=== PATIENT | female | born 1960 | race Caucasian/White ===

== ENCOUNTER → 2020-07-09 12:28 | Outpatient (CLI) | payer OTHER, SELFPAY ==
--- NOTE | ~2020-07-09 | MM_ITS ---
EXAMINATION: MM screening diamond BI w cat HISTORY: Screening mammogram TECHNIQUE: Craniocaudal and mediolateral oblique 3-D tomosynthesis images were obtained and synthetic 2-D images were generated. CAD analysis was submitted and interpreted. COMPARISON: 05/23/2019, 06/15/2018, 06/22/2017 bilateral digital screening mammogram examinations BREAST PARENCHYMAL COMPOSITION: There are scattered areas of fibroglandular density. FINDINGS: There is no evidence of suspicious mass, calcification, or architectural distortion to sugg est malignancy in either breast. There has been no suspicious interval change. IMPRESSION: 1. No mammographic evidence of malignancy. 2. Recommend routine screening mammography in one year. BI-RADS Category 1: Negative Reviewed, dictated and finalized at location B. 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
== END ==
PROVIDERS: PCP Family Medicine; Visit Provider Family Medicine
DX: Z12.31 Encounter for screening mammogram for malignant neoplasm of breast (principal)
CPT/HCPCS: 77063; 77067

== ENCOUNTER → 2020-07-10 15:44 | Outpatient (CLI) | payer OTHER, SELFPAY ==
--- NOTE | ~2020-07-10 | XR_ITS ---
EXAMINATION: XR knee RT min 4V DATE: 07/10/2020 16:08 INDICATION: Right knee pain. TECHNIQUE: 4 views of right knee were obtained. COMPARISON: None. FINDINGS: Bone alignment is normal. No fracture. There is mild tricompartmental osteoarthritis. There is a small knee joint effusion. IMPRESSION: 1. Mild right knee osteoarthritis. 2. Small right knee joint effusion. Reviewed, dictated and finalized at location A. SPRING FORMER
== END ==
PROVIDERS: Visit Provider Physician Assistant
DX: M17.11 Unilateral primary osteoarthritis, right knee (principal); M25.461 Effusion, right knee
CPT/HCPCS: 73564

== ENCOUNTER 2020-09-05 15:48 | Outpatient (CLI) | payer OTHER, SELFPAY | END 2020-09-05 15:49 | disposition home or self-care (01) | LOC: ANHCOVIDVC 15:48 | PROVIDERS: PCP Family Medicine | DX: Z23 Encounter for immunization (principal) | CPT/HCPCS: 0001A; 91300 ==

== ENCOUNTER 2020-09-26 15:42 | Outpatient (CLI) | payer OTHER, SELFPAY | END 2020-09-26 15:43 | disposition home or self-care (01) | LOC: ANHCOVIDVC 15:42 | PROVIDERS: PCP Family Medicine | DX: Z23 Encounter for immunization (principal) | CPT/HCPCS: 0002A; 91300 ==

== ENCOUNTER → 2020-10-19 02:49 | Outpatient (CLI) | payer OTHER, SELFPAY ==
[2020-10-19 19:43] LABS: SARS-CoV-2 RNA PCR Negative
== END ==
PROVIDERS: PCP Family Medicine; Visit Provider Internal Medicine Gastroenterology
DX: Z01.812 Encounter for preprocedural laboratory examination (principal); Z20.822 Contact with and (suspected) exposure to COVID-19
CPT/HCPCS: C9803; U0003; U0005

== ENCOUNTER 2020-10-22 00:49 | Day surgery (SDC) | payer OTHER, SELFPAY ==
[2020-10-14 16:22] VITALS: BMI 21.3
[2020-10-22 06:53] VITALS: BP 130/82; PULSE 71; RESP 16; TEMP 36.6; O2SAT 100; BMI 21.1
[2020-10-22] MEDS: LACTATED RINGERS 1,000 ML 150 ML IV CONT (07:02)
--- NOTE | 2020-10-22 07:12 | PM.HPGS ---
History of Present Illness History of Present Illness Consent: Risks, benefits, and alternatives have been discussed and questions answered. Patient agrees to proceed with procedure. Chief complaint: hx of colon polyps Narrative: Patria Clayton is a 59 year old female here for colon cancer screening. She had a polyp removed about 5 years ago and her father had colon cancer Review of Systems Review of Systems: All systems reviewed & are unremarkable except as noted in HPI and below PMFSH Past Medical History Medical History (Updated 10/22/20 @ 07:13 by Panda Romero MD) Rotator cuff injury Surgical History Surgical History H/O colonoscopy Family History Family History Father Family history of coronary artery disease Carcinoma of colon Grandparent Family history of cardiovascular disease Other Hypertension Social History Social History Smoking packs per day: 1 Smoking cigarettes per day: 20.0 Years smoked: 10 Smoking pack-years: 10.00 Smoking status: Former smoker Tobacco type: cigarettes Alcohol intake: current Alcohol use details: rarely Living arrangements: with family Gender identity (if verbalized by the patient): Female Spiritual care concerns: No Meds Home Medications and Allergies Home Medications Medication Instructions Recorded Confirmed Type cholecalciferol (vitamin D3) 25 mcg PO DAILY 10/14/20 10/22/20 History hydroxyzine HCl 2.5 mg PO DAILY PRN 10/14/20 10/22/20 History krill oil 500 mg PO DAILY 10/14/20 10/22/20 History multivit with min-folic acid 1 tablet PO DAILY 10/14/20 10/22/20 History [Women's Multivitamin Gummies] Allergies Allergy/AdvReac Type Severity Reaction Status Date / Time No Known Allergies Allergy Verified 10/22/20 06:52 Vital Signs Vital Signs - 24 hr 10/22/20 06:53 Temperature 36.6 C Pulse Rate 71 Respiratory Rate 16 Blood Pressure 130/82 Pulse Oximetry 100 Exam Resp: Auscultation: clear to auscultation bilaterally Cardio: Rate: regular rate Rhythm: regular rhythm GI: GI Palp: Yes Soft to palpation and No Tenderness to palpation present (GI) Assessment and Plan Assessment and plan (1) Colon cancer screening: Code(s): Z12.11 - Encounter for screening for malignant neoplasm of colon Status: Acute Assessment and Plan: Colonoscopy with possible biopsy or polypectomy or cautery or injection of substances.
--- NOTE | 2020-10-22 07:34 | WPDANESEPPF ---
Anes - Initial Pre Proc Eval Procedure: Operation Date: 10/22/20 08:00 Proposed Procedures p Screening Colonoscopy - Panda Romero MD Date/Time: 10/22/20 07:34 Surgeon: Panda Romero MD Pre Op Diagnosis: hx of colon polyps Patient Data Age: 59 Gender: F Height: 5 ft 6 in Weight: 59.4 kg Last Vital Signs Temp 98 F 10/22/20 06:53 Pulse 71 10/22/20 06:53 Resp 16 10/22/20 06:53 BP 130/82 10/22/20 06:53 Pulse Ox 100 10/22/20 06:53 Allergies Allergy/AdvReac Type Severity Reaction Status Date / Time No Known Allergies Allergy Verified 10/22/20 06:52 Home Medications Medication Instructions Recorded Confirmed Type cholecalciferol (vitamin D3) 25 mcg PO DAILY 10/14/20 10/22/20 History hydroxyzine HCl 2.5 mg PO DAILY PRN 10/14/20 10/22/20 History krill oil 500 mg PO DAILY 10/14/20 10/22/20 History multivit with min-folic acid 1 tablet PO DAILY 10/14/20 10/22/20 History [Women's Multivitamin Gummies] Patient hx anesthesia problems: none Family hx anesthesia problems: none PMFSH Past Medical History Medical History (Updated 10/22/20 @ 07:32 by Brenden Miles MD) Anxiety Rotator cuff injury Surgical History Surgical History H/O colonoscopy Family History Family History Father Family history of coronary artery disease Carcinoma of colon Grandparent Family history of cardiovascular disease Other Hypertension Social History Social History Smoking packs per day: 1 Smoking cigarettes per day: 20.0 Years smoked: 10 Smoking pack-years: 10.00 Smoking status: Former smoker Tobacco type: cigarettes Alcohol intake: current Alcohol use details: rarely Living arrangements: with family Gender identity (if verbalized by the patient): Female Spiritual care concerns: No Anes - Eval Final PreProcedure Day of Procedure 10/22/20 07:34 Patient weight: normal Heart: regular rate and rhythm Lungs: clear to auscultation Airway: Mallampati scale class II Neurological: alert and oriented Last oral intake: >/= 8 hours ASA classification: II Emergent: no Anesthetic plan: proceed Anesthesia type and monitoring: general GIVS and standard monitoring Informed Consent: The patient's anesthetic plan and its attendant risks and benefits were discussed with the patient/family/POA. Questions were solicited and answers provided to the satisfaction of the patient/family/POA.
[2020-10-22 08:29] VITALS: BP 86/56; PULSE 58; RESP 14; O2SAT 100
[2020-10-22 08:39] VITALS: BP 95/63; PULSE 62; RESP 13; O2SAT 100
[2020-10-22 08:49] VITALS: BP 116/85; PULSE 62; RESP 24; O2SAT 100
== END 2020-10-22 08:56 | disposition home or self-care (01) ==
PROVIDERS: PCP Family Medicine; Visit Provider Internal Medicine Gastroenterology
PROC: 0DJD8ZZ Inspection of Lower Intestinal Tract, Via Natural or Artificial Opening Endoscopic (ICD-10-PCS; CPT 45378; principal; 2020-10-22 08:00)
DX: Z12.11 Encounter for screening for malignant neoplasm of colon (principal); Z80.0 Family history of malignant neoplasm of digestive organs; Z87.891 Personal history of nicotine dependence
CPT/HCPCS: 45378; C9803; J2704; J7120; U0003; U0005

== ENCOUNTER 2020-11-30 08:23 | Emergency (ER) | payer OTHER, SELFPAY ==
--- NOTE | ~2020-11-30 | CT_ITS ---
EXAMINATION: CT brain wo con DATE: 11/30/2020 09:39 INDICATION: Numbness and tingling of the arm. TECHNIQUE: Computed tomography (CT) of the head was performed without intravenous contrast. The mA wa s adjusted according to patient size. Iterative reconstruction technique was employed. The dose-lengt h product was 529.67 mGy-cm. COMPARISON: None FINDINGS: There is no intracranial hemorrhage, acute infarction, or abnormal intracranial mass lesion . The ventricles are normal in size. The orbits are normal. There are changes of left-sided craniotom y. 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 There is a trace left mastoid effusion. IMPRESSION: 1. Normal brain. Reviewed, dictated and finalized at location A. IMPRESSION: 1. Normal brain.
--- NOTE | ~2020-11-30 | XR_ITS ---
EXAMINATION: XR chest 1V portable DATE: 11/30/2020 09:27 INDICATION: Left arm tingling. TECHNIQUE: A single frontal view of the chest was obtained. COMPARISON: Chest 2 views 02/29/2012 FINDINGS: The chest demonstrates clear lungs without pneumonia, pleural effusion, or pneumothorax. Th e heart size is normal. IMPRESSION: 1. No acute cardiopulmonary disease. Reviewed, dictated and finalized at location A.
[2020-11-30 08:35] VITALS: BP 154/96; PULSE 76; RESP 20; TEMP 36.8; O2SAT 100
--- NOTE | 2020-11-30 08:40 | ECG_ITS ---
Measurements Intervals Lorenzo Rate: 68 P: 80 WY: 158 QRS: 76 QRSD: 103 T: 68 QT: 370 QTc: 394 Interpretive Statements SINUS RHYTHM FUSION COMPLEX DELAYED PRECORDIAL R/S TRANSITION BASELINE ARTIFACT- AVF, V4-V6 BORDERLINE ECG Electronically Signed On 11-30-2020 14:59:50 CDT by Sawyer Mccarty D.O.
[2020-11-30 08:54] LABS: Basophils Absolute Auto 0.1 K/mm3 (0.0-0.1); Basophils Percent Auto 0.7 % (0.2-1.2); Eosinophils Absolute Auto 0.3 K/mm3 (0-0.3); Eosinophils Percent Auto 3.9 % (0-4.4); Hematocrit 41.3 % (37.0-47.0); Immature Granulocyte Absolute 0.01 K/mm3 (0.00-0.031); Immature Granulocyte Percent A 0.1 % (0-0.5); Lymphocytes Absolute Auto 1.16 K/mm3 (0.9-3.2); Lymphocytes Percent Auto 16.6 % (18.3-44.2); Mean Corpuscular HGB Conc 33.9 g/dl (32-36); Mean Corpuscular Hemoglobin 30.8 pg (26-34); Mean Platelet Volume 10.9 fl (7.4-10.4); Monocytes Absolute Auto 0.6 K/mm3 (0.1-0.6); Monocytes Percent Auto 7.9 % (2.6-8.5); Neutrophils Absolute Auto 4.9 K/mm3 (1.3-6.7); Neutrophils Percent Auto 70.8 % (45.5-73.1); Platelet Count Result 241 k/mm3 (150-375); Red Blood Count 4.54 M/mm3 (4.2-5.4); Red Cell Distribution Width 12.2 % (11.5-14.5)
[2020-11-30 08:54] LABS: Glucose Point of Care 110 mg/dl (65-105)
[2020-11-30 09:03] LABS: Alanine Aminotransferase 25 U/L (4-35); Albumin Level 4.7 g/dL (3.5-5.1); Alkaline Phosphatase 67 U/L (38-126); Anion Gap 9 mmol/L (8-16); Aspartate Amino Transferase 38 U/L (14-36); Bilirubin,Total 0.5 mg/dL (0.2-1.3); Blood Urea Nitrogen 16 mg/dL (7-17); Calcium 9.9 mg/dL (8.4-10.2); Carbon Dioxide 30 mmol/L (22-30); Chloride 98 mmol/L (98-107); Estimated Glomerular Filt Rate > 60; Glucose 104 mg/dL (65-105); Potassium 4.2 mmol/L (3.4-5.0); Sodium 137 mmol/L (137-145)
[2020-11-30 09:20] VITALS: BP 141/95; PULSE 65; RESP 20; O2SAT 99
[2020-11-30 09:21] LABS: INR 0.9; Prothrombin Time 12.5 Seconds (11.1-14.7)
[2020-11-30 09:23] LABS: Partial Thromboplastin Time 27.5 SECONDS (22.3-36.8)
[2020-11-30 09:27] LABS: Alveolar/Arterial O2 Gradient 13.6 mmHg; Base Excess ABG 2.2 mEq/l (+/-2.0); Carboxyhemoglobin 0.3 % THb (0-2.0); Fractional Inspired Oxygen 21 %; HCO3 ABG 25.6 mEq/l (22.0-26.0); Methemoglobin ABG 0.3 %THb (0-1.5); Oxygen Content ABG 18.5 %vol (16.0-22.0); Oxygen Saturation ABG 97.6 % (95.0-100.0); Oxyhemoglobin 96.3 % THb (90.0-100.0); PCO2 ABG 35.9 mmHg (35.0-45.0); PO2 ABG 93.1 mmHg (80.0-100.0); PO2 FiO2 Ratio Arterial Blood 4.43 %; Reduced Hemoglobin 3.1 %THb (0-5.0); Total Hemoglobin 13.6 g/dL (12.0-18.0); pH ABG 7.471 (7.350-7.450)
[2020-11-30 09:29] LABS: Device ROOM AIR; Modified Allen's Test Pass; Site Drawn LEFT RADIAL
[2020-11-30 10:04] VITALS: BP 123/84; PULSE 71; RESP 20; O2SAT 99
--- NOTE | 2020-11-30 10:34 | ED.GENADULT ---
HPI - General Adult General Chief complaint: Neuro Symptoms/Deficit Stated complaint: Right arm numbness, weakness Time Seen by Provider: 11/30/20 10:19 Source: patient and family Mode of arrival: ambulatory Limitations: no limitations History of Present Illness HPI narrative: Patient presents for evaluation of numbness in the upper extremities. She indicates she was driving to work at 0650 this morning when she experienced numbness in the right index finger. She then developed similar symptoms throughout the right hand which migrated up the right upper extremity. When she arrived at work and sustained symptoms on the left side. No history of similar symptoms. She denies any problems with speech, swallowing, motor function. She did not experience any chest pain or shortness of breath. She contacted EMS who evaluated her. She had a twelve-lead, and serum glucose which was normal. Her daughter brought her here for further evaluation. At the present time she does not have any symptoms whatsoever. She denies any underlying medical problems. She does not smoke. She reports intermittent increase in stress but does not feel increasingly stressed or anxious at this time. Related Data Home Medications Medication Instructions Recorded Confirmed Women's Multivitamin Gummies 1 tablet PO DAILY 10/14/20 11/30/20 Allergies Allergy/AdvReac Type Severity Reaction Status Date / Time No Known Allergies Allergy Verified 11/30/20 09:07 Review of Systems Review of Systems: Narrative: CONSTITUTIONAL: Denies fever, chills, or sweats. EYES: Denies visual changes, redness, or discharge. ENT: Denies rhinorrhea, congestion, sore throat, or otalgia. CARDIOVASCULAR: Denies chest pain, palpitations, or edema. RESPIRATORY: Denies cough or dyspnea. GASTROINTESTINAL: Denies abdominal pain, nausea, vomiting, or diarrhea. GENITOURINARY: Denies dysuria or hematuria. SKIN: Denies rash or itching. MUSCULOSKELETAL: Denies back pain, joint pain, or myalgia. NEUROLOGIC: Reports numbness in bilateral upper extremities earlier, now resolved. Denies headache, dizziness, or weakness. PSYCHIATRIC: Denies anxiety or depression. [facility] Past Medical History Medical History Anxiety Rotator cuff injury Surgical History Surgical History H/O colonoscopy Family History Family History Father Family history of coronary artery disease Carcinoma of colon Grandparent Family history of cardiovascular disease Other Hypertension Social History Social History Smoking packs per day: 1 Smoking cigarettes per day: 20.0 Years smoked: 10 Smoking pack-years: 10.00 Smoking status: Former smoker Tobacco type: cigarettes Alcohol intake: current Gender identity (if verbalized by the patient): Female Spiritual care concerns: No Exam Narrative: Exam Narrative: GENERAL: Well-appearing, well-nourished, and in no acute distress. HEAD: Normocephalic, atraumatic. EYES: PERRLA and EOMI. ENT: Nares clear, no rhinorrhea or epistaxis. Mucous membranes moist. Oropharynx without tonsillar hypertrophy exudate or other lesions. Bilateral TMs pearly shen nonbulging NECK: Supple. No adenopathy or masses. No carotid bruits or JVD CHEST: Clear to auscultation. No respiratory distress. No wheezes rales or rhonchi HEART: Regular rate and rhythm. No murmur heard. Normal peripheral pulses. ABDOMEN: Soft, nontender, nondistended, normal active bowel sounds. EXTREMITIES: Normal range of motion. No edema. SKIN: Warm, dry, no rash. NEURO: No focal deficits. Alert and oriented x3. NIH score is 0 PSYCH: Normal mood and affect. Course Course Emergency Course: This is a 60-year-old female who presented with numbness in the righ
[2020-11-30 10:55] VITALS: BP 129/87; PULSE 70; RESP 20; O2SAT 100
[2020-11-30 11:16] LABS: Troponin I < 0.012 ng/mL (0.000-0.034)
[2020-11-30 11:33] VITALS: BP 114/89; PULSE 67; RESP 20; O2SAT 100
[2020-11-30 11:49] VITALS: BP 114/87; PULSE 67; RESP 20; O2SAT 100
== END 2020-11-30 11:51 | disposition home or self-care (01) ==
PROVIDERS: Emergency Medicine; Emergency Provider Nurse Practitioner; PCP Family Medicine
DX: R20.2 Paresthesia of skin (principal); Z87.891 Personal history of nicotine dependence; R94.31 Abnormal electrocardiogram [ECG] [EKG]
CPT/HCPCS: 36415; 36600; 70450; 71045; 80053; 82375; 82805; 82948; 83050; 84484; 85025; 85610; 85730; 93005; 99284

== ENCOUNTER → 2021-08-21 12:47 | Outpatient (CLI) | payer OTHER, SELFPAY ==
--- NOTE | ~2021-08-21 | MM_ITS ---
EXAMINATION: MM screening diamond BI w cat HISTORY: Screening TECHNIQUE: Craniocaudal and mediolateral oblique 3-D tomosynthesis images were obtained and synthetic 2-D images were generated. CAD analysis was submitted and interpreted. COMPARISON: Comparison to multiple prior studies sequentially, with oldest reviewed study dated 12/2015. BREAST PARENCHYMAL COMPOSITION: The breasts are heterogeneously dense, which may obscure small masses . FINDINGS: There is no evidence of suspicious mass, calcification, or architectural distortion to sugg est malignancy in either breast. There has been no suspicious interval change. IMPRESSION: 1. No mammographic evidence of malignancy. 2. Recommend routine screening mammography in one year. BI-RADS Category 1: Negative Reviewed, dictated and finalized at location A. 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
== END ==
PROVIDERS: PCP Family Medicine; Visit Provider Family Medicine
DX: Z12.31 Encounter for screening mammogram for malignant neoplasm of breast (principal)
CPT/HCPCS: 77063; 77067

== ENCOUNTER → 2022-05-12 13:51 | Outpatient (CLI) | payer OTHER, SELFPAY ==
--- NOTE | ~2022-05-12 | DEXA_ITS ---
Bone Density Report Name: ARMANDO CASTILLO Age: 61 Sex: Female Ethnicity: White Date of : 1960 Indication: osteopenia; height loss; asthma or emphysema;postmenopausal Referring Provider: Raine Argueta Study: Bone densitometry was performed. Exam Date: May 12, 2022 Accession number: [id number] Bone Density: Region BMD T-score Z-score Classification AP Spine (L1, L2, L3) 0.911 -1.0 0.6 Normal Femoral Neck (Left) 0.616 -2.1 -0.7 Osteopenia Total Hip (Left) 0.778 -1.3 -0.3 Osteopenia Femoral Neck (Right) 0.623 -2.0 -0.6 Osteopenia Total Hip (Right) 0.719 -1.8 -0.7 Osteopenia Total Hip Mean 0.749 -1.6 -0.5 Osteopenia World Health Organization criteria for BMD impression classify patients as: Normal (T-score at or above -1.0), Osteopenia (T-score between -1.0 and -2.5), or Osteoporosis (T-score at or below -2.5). 10-year Fracture Risk(1): Major Osteoporotic Fracture 9.6% Hip Fracture 1.4% Reported Risk Factors: [place] (), Neck BMD=0.623, BMI=22.0 (1) FRAX(R) Version 3.08. Fracture probability calculated for an untreated patient. Fracture probability may be lower if the patient has received treatment. Previous Exams: Region Exam Age BMD T-score BMD Change BMD Change Date g/cm2 vs Baseline vs Previous AP Spine(L1, L2, L3) 05/12/2022 61 0.911 -1.0 -0.121 -0.028* 06/06/2015 54 0.939 -0.7 -0.093 -0.031* 10/07/2012 51 0.970 -0.4 -0.063 -0.063 12/14/2003 43 1.032 0.1 Total Hip(Left) 05/12/2022 61 0.778 -1.3 -0.201 -0.041* 06/06/2015 54 0.818 -1.0 -0.161 -0.027 10/07/2012 51 0.845 -0.8 -0.134 -0.134 12/14/2003 43 0.979 0.3 Total Hip(Right) 05/12/2022 61 0.719 -1.8 -0.194 -0.044* 06/06/2015 54 0.764 -1.5 -0.150 -0.051* 10/07/2012 51 0.815 -1.0 -0.098 -0.098 12/14/2003 43 0.913 -0.2 *Denotes significance at 95% confidence level, LSC for AP Spine = 0.022 g/cm2, LSC for Total Hip = 0.027 g/cm2 Clinical Information Provided by Patient: Has used the following medications: Vitamin D, Calcium, MTV Has the following medical conditions: Asthma or Emphysema Patient maximum height was 67 Menopause Age: 52 No regular weight bearing exercise Drinks caffeinated beverages Onset of menses at age 15.5 Number of children 2 Impres
== END ==
PROVIDERS: PCP Family Medicine; Visit Provider Family Medicine
DX: Z78.0 Asymptomatic menopausal state (principal); M85.852 Other specified disorders of bone density and structure, left thigh; M85.851 Other specified disorders of bone density and structure, right thigh
CPT/HCPCS: 77080

== ENCOUNTER → 2022-09-22 12:44 | Outpatient (CLI) | payer OTHER, SELFPAY ==
--- NOTE | ~2022-09-22 | MM_ITS ---
EXAMINATION: MM screening diamond BI w cat HISTORY: Screening TECHNIQUE: Craniocaudal and mediolateral oblique 3-D tomosynthesis images were obtained and synthetic 2-D images were generated. CAD analysis was submitted and interpreted. COMPARISON: Comparison to multiple prior studies sequentially, with oldest reviewed study dated 12/2015. BREAST PARENCHYMAL COMPOSITION: The breasts are heterogeneously dense, which may obscure small masses FINDINGS: The left breast is stable without evidence for malignancy. There is a focal hyperdense asym metry in the upper outer quadrant of the right breast posteriorly. IMPRESSION: 1. Focal right breast asymmetry, upper outer quadrant. 2. Additional mammographic views and possible breast ultrasound are recommended. BI-RADS Category 0: Incomplete: Needs additional imaging evaluation. Reviewed, dictated and finalized at location A. IMPRESSION: 1. Focal right breast asymmetry, upper outer quadrant. 2. Additional mammographic views and possible breast ultrasound are recommended . BI-RADS Category 0: Incomplete: Needs additional imaging evaluation.
== END ==
PROVIDERS: PCP Family Medicine; Visit Provider Family Medicine
DX: Z12.31 Encounter for screening mammogram for malignant neoplasm of breast (principal); R92.8 Other abnormal and inconclusive findings on diagnostic imaging of breast
CPT/HCPCS: 77063; 77067

== ENCOUNTER → 2022-09-24 07:26 | Outpatient (CLI) | payer OTHER, SELFPAY ==
--- NOTE | ~2022-09-24 | MMUS_ITS ---
EXAMINATION: MM diagnostic diamond RT w cat, US breast RT limited HISTORY: Follow-up right breast mass TECHNIQUE: Additional 3-D tomosynthesis images of the right breast were performed and synthetic 2-D i mages were generated. CAD analysis was submitted and interpreted. High resolution Limited right breas t ultrasound was performed. COMPARISON: Comparison to multiple prior studies sequentially, with oldest reviewed study dated 03/2017. BREAST PARENCHYMAL COMPOSITION: The breasts are heterogeneously dense, which may obscure small masses . FINDINGS: MAMMOGRAPHIC FINDINGS: There is a subtle asymmetry in the outer aspect of the right breast, best seen on spot CC view. This is not well-visualized on MLO or mediolateral views. ULTRASOUND: Limited right breast ultrasound: At 10-11:00, 5.5 cm from the nipple there is a hypoechoic heterogene ous appearing 5 mm mass with posterior attenuation and marginal vascularity IMPRESSION: 1. 5 mm right breast mass at 10-11 o'clock, 5.5 cm from the nipple. 2. Ultrasound-guided right breast biopsy recommended. BI-RADS category 4, suspicious findings. Reviewed, dictated and finalized at location A. IMPRESSION: 1. 5 mm right breast mass at 10-11 o'clock, 5.5 cm from the nipple. 2. Ultrasound-guided right breast biopsy recommended. BI-RADS category 4, suspicious findings.
== END ==
PROVIDERS: PCP Family Medicine; Visit Provider Family Medicine
DX: R92.8 Other abnormal and inconclusive findings on diagnostic imaging of breast (principal)
CPT/HCPCS: 76642; 77061; 77065; G0279

== ENCOUNTER 2022-10-06 08:55 | Outpatient (CLI) | payer OTHER, SELFPAY ==
--- NOTE | ~2022-10-06 | MMUS_ITS ---
EXAMINATION: US GUIDED NEEDLE BIOPSY DATE: 10/06/2022 10:39 CDT INDICATION: 5 mm sonographic right breast mass at T10-11 o'clock 5.5 cm from nipple TECHNIQUE AND FINDINGS: The risks and potential benefits of the procedure were discussed with the patient, and written inform ed consent was obtained. Timeout procedure was performed. After sterile preparation of the right karla st, 1% lidocaine was utilized for local anesthesia. A 14G spring-loaded biopsy gun needle was advanced to the edge of the region of interest from a media l approach utilizing sonographic guidance. A total of three tissue core samples were obtained throug h the lesion. An Inrad tissue marker clip was then placed at the biopsy site. Hemostasis was achieve d. A sterile bandage was applied. The patient tolerated procedure well. There was some bleeding at the biopsy site noted sonographicall y, with approximately 1.9 cm hematoma noted on the postbiopsy mammogram.. The patient was given verb al instructions prior to departing from the department. A two view mammogram was performed to documen t tissue marker clip placement. The tissue samples were submitted to surgical pathology for histologi c analysis. IMPRESSION: 1. Successful ultrasound guided biopsy of right 10-11:00 breast mass with biopsy marker placement. P lease refer to pathology report for histologic analysis. Reviewed, dictated and finalized at Location A. Reviewed, dictated and finalized at location A. IMPRESSION: 1. Successful ultrasound guided biopsy of right 10-11:00 breast mass with biop sy marker placement. Please refer to pathology report for histologic analysis.
== END 2022-10-06 08:56 | disposition home or self-care (01) ==
PROVIDERS: PCP Family Medicine; Visit Provider Family Medicine
DX: N63.10 Unspecified lump in the right breast, unspecified quadrant (principal); C50.911 Malignant neoplasm of unspecified site of right female breast
CPT/HCPCS: 19083; 88305; 88342; A4648

== ENCOUNTER 2024-01-19 02:00 | Day surgery (SDC) | payer OTHER, SELFPAY ==
[2024-01-05 08:26] VITALS: BMI 21.6
[2024-01-19 08:19] VITALS: BP 142/86; PULSE 73; RESP 18; TEMP 36.9; O2SAT 100
[2024-01-19] MEDS: LACTATED RINGERS 1,000 ML 150 ML IV CONT (08:27)
--- NOTE | 2024-01-19 08:50 | PM.HPGS ---
History of Present Illness History of Present Illness Consent: Risks, benefits, and alternatives have been discussed and questions answered. Patient agrees to proceed with procedure. Chief complaint: Poor prep Narrative: Patria Clayton is a 63 year old female with colon polyp, last colonoscopy 2020 with poor prep, also family h/o CRC Review of Systems Review of Systems: All systems reviewed & are unremarkable except as noted in HPI and below PMFSH Past Medical History Medical History (Updated 01/19/24 @ 08:51 by Kadeem Corado MD) Anxiety Breast mass Colon polyp Rotator cuff injury Surgical History Surgical History H/O colonoscopy Family History Family History Father Family history of coronary artery disease Carcinoma of colon Grandparent Family history of cardiovascular disease Other Hypertension Social History Social History Smoking packs per day: 1 Smoking cigarettes per day: 20.0 Years smoked: 10 Smoking pack-years: 10.00 Smoking status: Former smoker Tobacco type: cigarettes Alcohol intake: current Drinks per week: 3 Alcohol use details: rarely Lack of Transportation: No Lack of Food: Never True Current Housing: I Have Housing Concerned About Future Housing: No Difficulty Paying Gas/Electric Bills: No Difficulty Paying for Meds: No Currently Unemployed: No Living arrangements: with family Gender identity (if verbalized by the patient): Female Spiritual care concerns: No Meds Home Medications and Allergies Home Medications Medication Instructions Recorded Confirmed Type multivitamin with minerals-folic 1 tablet PO DAILY 10/14/20 01/05/24 History acid 200 mcg chewable tablet (Women's Multivitamin Gummies) krill oil 500 mg capsule 500 mg PO DAILY 05/22/21 01/05/24 History calcium carbonate 600 mg PO DAILY #90 tabs 05/14/22 01/05/24 Rx cholecalciferol (vitamin D3) 50 50 mcg PO DAILY #90 tabs 05/14/22 01/05/24 Rx mcg (2,000 unit) tablet tamoxifen 20 mg tablet 20 mg PO DAILY 05/11/23 01/05/24 History fluticasone propionate 50 1 spray intranasal BID PRN 11/09/23 01/05/24 History mcg/actuation nasal Allergic Symptoms spray,suspension (Flonase Allergy Relief) olopatadine 0.6 % nasal spray 2 spray intranasal BID PRN Allergy 11/09/23 01/05/24 History Symptoms pravastatin 10 mg tablet 10 mg PO QHS #90 tabs 11/09/23 01/05/24 Rx sertraline 25 mg tablet 25 mg PO DAILY #90 tabs 11/15/23 01/05/24 Rx Allergies Allergy/AdvReac Type Severity Reaction Status Date / Time No Known Allergies Allergy Verified 01/19/24 08:17 Vital Signs Vital Signs - 24 hr 01/19/24 08:19 Temperature 98.4 F Pulse Rate 73 Respiratory Rate 18 Blood Pressure 142/86 H Pulse Oximetry 100 Oxygen Delivery Room Air Exam Const: General: comfortable and no acute distress HENMT: Face/Nose/Sinus: Normal nares present Eyes: General: appearance normal, both eyes and all related structures Neck: Neck: no JVD Resp: Auscultation: clear to auscultation bilaterally Cardio: Rate: regular rate Rhythm: regular rhythm GI: Inspection: non-distended GI Palp: Yes Soft to palpation Skin: General skin exam: normal color Neuro: General: gait normal Speech: normal speech Extrem: General: normal to inspection Psych: Mental Status: mental status grossly normal Assessment and Plan Assessment and plan (1) Colon polyp: Code(s): K63.5 - Polyp of colon Status: Acute Assessment and Plan: colonoscopy
--- NOTE | 2024-01-19 09:29 | WPDANESEPPF ---
Anes - Initial Pre Proc Eval Procedure: Operation Date: 01/19/24 09:30 Proposed Procedures p Colonoscopy - Kadeem Corado MD Date/Time: 01/19/24 09:29 Surgeon: Kadeem Corado MD Pre Op Diagnosis: Poor prep Patient Data Age: 63 Gender: F Height: 1.65 m Weight: 57.4 kg Last Vital Signs Temp 98.4 F 01/19/24 08:19 Pulse 73 01/19/24 08:19 Resp 18 01/19/24 08:19 BP 142/86 H 01/19/24 08:19 Pulse Ox 100 01/19/24 08:19 O2 Del Method Room Air 01/19/24 08:19 Allergies Allergy/AdvReac Type Severity Reaction Status Date / Time No Known Allergies Allergy Verified 01/19/24 08:17 Home Medications Medication Instructions Recorded Confirmed Type multivitamin with minerals-folic 1 tablet PO DAILY 10/14/20 01/05/24 History acid 200 mcg chewable tablet (Women's Multivitamin Gummies) krill oil 500 mg capsule 500 mg PO DAILY 05/22/21 01/05/24 History calcium carbonate 600 mg PO DAILY #90 tabs 05/14/22 01/05/24 Rx cholecalciferol (vitamin D3) 50 50 mcg PO DAILY #90 tabs 05/14/22 01/05/24 Rx mcg (2,000 unit) tablet tamoxifen 20 mg tablet 20 mg PO DAILY 05/11/23 01/05/24 History fluticasone propionate 50 1 spray intranasal BID PRN 11/09/23 01/05/24 History mcg/actuation nasal Allergic Symptoms spray,suspension (Flonase Allergy Relief) olopatadine 0.6 % nasal spray 2 spray intranasal BID PRN Allergy 11/09/23 01/05/24 History Symptoms pravastatin 10 mg tablet 10 mg PO QHS #90 tabs 11/09/23 01/05/24 Rx sertraline 25 mg tablet 25 mg PO DAILY #90 tabs 11/15/23 01/05/24 Rx Patient hx anesthesia problems: none Family hx anesthesia problems: none Results Review: All pre-operative results and documents have been reviewed as part of the pre-operative evaluation. [facility] Past Medical History Medical History (Updated 01/19/24 @ 08:51 by Kadeem Corado MD) Anxiety Breast mass Colon polyp Rotator cuff injury Surgical History Surgical History H/O colonoscopy Family History Family History Father Family history of coronary artery disease Carcinoma of colon Grandparent Family history of cardiovascular disease Other Hypertension Social History Social History Smoking packs per day: 1 Smoking cigarettes per day: 20.0 Years smoked: 10 Smoking pack-years: 10.00 Smoking status: Former smoker Tobacco type: cigarettes Alcohol intake: current Drinks per week: 3 Alcohol use details: rarely Lack of Transportation: No Lack of Food: Never True Current Housing: I Have Housing Concerned About Future Housing: No Difficulty Paying Gas/Electric Bills: No Difficulty Paying for Meds: No Currently Unemployed: No Living arrangements: with family Gender identity (if verbalized by the patient): Female Spiritual care concerns: No Anes - Eval Final PreProcedure Day of Procedure 01/19/24 09:29 Patient weight: normal Heart: regular rate and rhythm Lungs: clear to auscultation Airway: Mallampati scale class II Neurological: alert and oriented Last oral intake: >/= 8 hours ASA classification: III Emergent: no Anesthetic plan: proceed Anesthesia type and monitoring: general GIVS and standard monitoring Results Review: All pre-operative results and documents have been reviewed as part of the pre-operative evaluation. Informed Consent: The patient's anesthetic plan and its attendant risks and benefits were discussed with the patient/family/POA. Questions were solicited and answers provided to the satisfaction of the patient/family/POA.
[2024-01-19 09:36] VITALS: BP 111/77; PULSE 75; RESP 18; O2SAT 94
[2024-01-19 09:46] VITALS: BP 107/74; PULSE 72; RESP 18; O2SAT 100
[2024-01-19 09:56] VITALS: BP 124/75; PULSE 69; RESP 18; O2SAT 100
== END 2024-01-19 10:04 | disposition home or self-care (01) ==
PROVIDERS: PCP Family Medicine; Visit Provider Internal Medicine Gastroenterology
PROC: 0DJD8ZZ Inspection of Lower Intestinal Tract, Via Natural or Artificial Opening Endoscopic (ICD-10-PCS; CPT 45378; principal; 2024-01-19 09:30)
DX: Z12.11 Encounter for screening for malignant neoplasm of colon (principal); D12.2 Benign neoplasm of ascending colon; D12.3 Benign neoplasm of transverse colon; D12.5 Benign neoplasm of sigmoid colon; F41.9 Anxiety disorder, unspecified; Z79.810 Long term (current) use of selective estrogen receptor modulators (SERMs); Z87.891 Personal history of nicotine dependence; Z80.0 Family history of malignant neoplasm of digestive organs; Z82.49 Family history of ischemic heart disease and other diseases of the circulatory system
CPT/HCPCS: 45380; 45385; 88305; J2704; J7120

== ENCOUNTER 2024-05-15 07:17 | Outpatient (CLI) | payer OTHER, SELFPAY ==
--- NOTE | ~2024-05-15 | DEXA_ITS ---
Bone Density Report Name: ARMANDO CASTILLO Age: 63 Sex: Female Ethnicity: White Date of : 1960 Indication: postmenopausal; screening for osteoporosis; cancer; Referring Provider: Chela Carlin Study: Bone densitometry was performed. Exam Date: May 15, 2024 Accession number: [id number] Bone Density: Region BMD T-score Z-score Classification AP Spine(L1-L4) 1.027 -0.2 1.5 Normal Femoral Neck (Left) 0.647 -1.8 -0.3 Osteopenia Total Hip (Left) 0.769 -1.4 -0.2 Osteopenia Femoral Neck (Right) 0.627 -2.0 -0.5 Osteopenia Total Hip (Right) 0.736 -1.7 -0.5 Osteopenia Femoral Neck Mean 0.637 -1.9 -0.4 Osteopenia Total Hip Mean 0.753 -1.6 -0.4 Osteopenia World Health Organization criteria for BMD impression classify patients as: Normal (T-score at or above -1.0), Osteopenia (T-score between -1.0 and -2.5), or Osteoporosis (T-score at or below -2.5). 10-year Fracture Risk(1): Major Osteoporotic Fracture 9.5% Hip Fracture 1.4% Reported Risk Factors: [place] (), Neck BMD=0.627, BMI=22.0 (1) FRAX(R) Version 3.08. Fracture probability calculated for an untreated patient. Fracture probability may be lower if the patient has received treatment. Clinical Information Provided by Patient: Has used the following medications: Vitamin D, Calcium, Multi - D, Calcium, Magnesium Has the following medical conditions: Cancer Patient maximum height was 64.0 Menopause Age: 51 No regular weight bearing exercise Drinks caffeinated beverages Onset of menses at age 12 Number of children 2 Impression: The patient has low bone mass, based on the Right Femoral Neck T-score. Discussion: BONE DENSITY IS LOW AT ONE OR MORE SKELETAL SITES. This patient's lowest T-score is low at one or more skeletal sites. It meets the World Health Organization's (WHO) criteria for ?low bone mass? (T-score between -1.0 and -2.5). The patient's 10-year risk of fracture as calculated by FRAX is less than the threshold where pharmacological therapy is recommended by the National Osteoporosis Foundation (NOF). However, all treatment decisions require clinical judgment and consideration of individual patient factors, including patient preferences, comorbidities, previous drug use, risk factors not captured in the FRAX model (e.g., frailty, falls, vitamin D deficiency, increased bone turnover, interval significant decline in bone density) and possible under or overestimation of fracture risk by FRAX. The patient should follow a healthful lifestyle (good nutrition with adequate calcium and vitamin D, and appropriate weight-bearing exercise). Follow-Up: Consider repeating this study in 2 to 3 years to reassess this patient's status, or sooner if there is some new clinical indication. Reported by: IMELDA on 05/16/2024 3:27:00 PM. Reviewed, dictated and finalized at location A.
== END 2024-05-15 07:18 | disposition home or self-care (01) ==
LOC: CHSIMG 07:18
PROVIDERS: PCP Family Medicine; Visit Provider Nurse Practitioner
DX: M85.88 Other specified disorders of bone density and structure, other site (principal)
CPT/HCPCS: 77080